=== PATIENT | male | born 2000 | race African-American/Black ===

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

== ENCOUNTER 2018-03-07 15:45 | Emergency (ER) | payer SELFPAY ==
--- NOTE | 2018-03-08 20:54 | UC ---
Discharge - Sign-Out/Discharge Documenting (check all that apply): Post-Discharge Follow Up All imaging exams completed and their final reports reviewed: No Studies - Discharge Plan Condition: Stable Disposition: LEFT WITHOUT BEING SEEN Referrals: No Primary Care Phys,NOPCP [Primary Care Provider] - - Billing Disposition and Condition Condition: STABLE Disposition: Left Without Being Seen
== END 2018-03-07 16:11 | disposition left against medical advice (07) ==
LOC: OHCORT 15:45
DX: Z02.5 Encounter for examination for participation in sport (principal)

== ENCOUNTER → 2018-03-07 16:34 | Emergency (ER) | payer SELFPAY ==
--- NOTE | 2018-03-08 20:54 | UC ---
Discharge - Sign-Out/Discharge Documenting (check all that apply): Post-Discharge Follow Up All imaging exams completed and their final reports reviewed: No Studies - Discharge Plan Disposition: HOME Referrals: No Primary Care Phys,NOPCP [Primary Care Provider] - - Billing Disposition and Condition Disposition: Home
== END | disposition home or self-care (01) ==
LOC: OHCORT 16:34
DX: Z02.5 Encounter for examination for participation in sport (principal)